=== PATIENT | male | born 1950 | race American Indian/Alaskan Native ===

== ENCOUNTER 2017-03-07 20:37 | Inpatient (IN) | payer MEDICARE ==
[2017-03-07 21:12] LABS: Basophils % (Auto) 1.2 % (0.0-1.8); Eosinophils % (Auto) 4.9 % (0.0-4.3); Hematocrit 36.2 % (35.5-45.6); Hemoglobin 12.3 gm/dl (11.8-15.2); Mean Corpuscular HGB Conc 34 % (32-34); Mean Corpuscular Hemoglobin 32 pg (28-32); Mean Corpuscular Volume 94 fl (84-94); Platelet Count 158 K/mm3 (140-440); Red Blood Count 3.86 M/mm3 (3.65-5.03); Red Cell Distribution Width 13.6 % (13.2-15.2)
[2017-03-07 21:25] LABS: INR 1.03 (0.87-1.13); Partial Thromboplastin Time 28.1 Sec. (24.2-36.6)
[2017-03-07 21:32] LABS: Anion Gap 20 mmol/L; BUN/Creatinine Ratio 16; Blood Urea Nitrogen 13 mg/dL (9-20); Calcium 9.3 mg/dL (8.4-10.2); Carbon Dioxide 26 mmol/L (22-30); Chloride 99.3 mmol/L (98-107); Glucose 98 mg/dL (75-100); Potassium 4.2 mmol/L (3.6-5.0); Sodium 141 mmol/L (137-145)
--- NOTE | 2017-03-08 02:38 | Emergency Department Report ---
HPI - General Chief Complaint: Chest Pain Time Seen by Provider: 03/08/17 01:51 - HPI HPI: This is a 66 year-old male presents to the emergency department with complaint of some intermittent left-sided chest pain that started this evening. It is also associated with some shortness of breath and dizziness. He denies any nausea, vomiting or diaphoresis. The patient complains of some acute on chronic abdominal cramping and/or discomfort. He has not taken anything for her symptoms prior to presentation. He is a former smoker and denies any illicit drug use. He has a history of prostate cancer that was recently diagnosed and he is on chemotherapeutic medications. He has a history of 2 previous strokes with some left lower extremity residual weakness , hypertension, hyperlipidemia. No recent travel or sick contacts at home. His primary care physician is a Dr. Thompson. He has an oncologist, but no gypsum calciner. He is unsure if he has ever had a stress test previously. ED Past Medical Hx - Past Medical History Hx Hypertension: Yes Hx CVA: Yes (2 strokes, 1 TIA) Hx of Cancer: Yes (prostate cancer) Additional medical history: high cholesterol - Surgical History Past Surgical History?: No - Social History Smoking Status: Never Smoker Substance Use Type: None - Medications Home Medications: Home Medications Medication Instructions Recorded Confirmed Last Taken Type AtorvaSTATin [Lipitor] 10 mg PO QHS 03/08/17 03/08/17 Unknown History Bicalutamide [Casodex] 50 mg PO DAILY 03/08/17 03/08/17 Unknown History Clopidogrel Bisulfate [Plavix] 75 mg PO DAILY 03/08/17 03/08/17 Unknown History Pantoprazole [Protonix TAB] 40 mg PO BID #30 tablet 03/08/17 Unknown Rx Tamsulosin [Flomax] 0.4 mg PO QDAY 03/08/17 03/08/17 Unknown History amLODIPine [Norvasc] 10 mg PO DAILY 03/08/17 03/08/17 Unknown History ED Review of Systems ROS: Stated complaint: CHEST PAIN AND DIZZINESS Other details as noted in HPI Comment: All other systems reviewed and negative Constitutional: denies: chills, fever Eyes: denies: eye pain, eye discharge, vision change ENT: denies: ear pain, throat pain Respiratory: shortness of breath. denies: cough Cardiovascular: chest pain. denies: palpitations Gastrointestinal: abdominal pain. denies: vomiting Genitourinary: denies: urgency, dysuria Musculoskeletal: denies: back pain, joint swelling, arthralgia Skin: denies: rash, lesions Neurological: other (dizzy). denies: headache Physical Exam - Physical Exam Vital Signs: Vital Signs 03/07/17 03/08/17 03/08/17 20:53 01:20 02:15 Temperature 98.2 F 98.1 F Pulse Rate 58 L 57 L 53 L Respiratory 18 18 11 L Rate Blood Pressure 161/88 151/85 179/79 O2 Sat by Pulse 98 99 100 Oximetry 03/08/17 02:21 Temperature Pulse Rate Respiratory 14 Rate Blood Pressure O2 Sat by Pulse 98 Oximetry Physical Exam: GENERAL: The patient is well-developed well-nourished. HENT: Normocephalic. Atraumatic. Patient has moist mucous membranes. EYES: Extraocular motions are intact. Pupils equal reactive to light bilaterally. NECK: Supple. Trachea is midline. CHEST/LUNGS: Clear to auscultation. There is no respiratory distress noted. HEART/CARDIOVASCULAR: Regular. There is no tachycardia. There is no gallop rub or murmur. ABDOMEN: Abdomen is soft. Mild generalized tenderness to palpation of the abdomen. Patient has normal bowel sounds. There is no abdominal distention. SKIN: There is no rash. There is no edema. There is no diaphoresis. NEURO: The patient is awake, alert, and oriented. The patient is cooperative. The patient has no focal neurologic deficits. The patient has normal speech. MUSCULOSKELETAL: There is no tenderness or deformity. There is no limitation range of motion. There is no evidence of acute injury. ED Course Vital Signs 03/07/17 03/08/17 03/08/17 20:53 01:20 02:15 Temperature 98.2 F 98.1 F Pulse Rate 58 L 57 L 53 L Respiratory 18 18 11 L Rate Blood Pressure 161/88 151/85 179/79 O2 Sat by Pulse 98 99 100 Oximetry 03/08/17 02:21 Temperature Pulse Rate Respiratory 14 Rate Blood Pressure O2 Sat by Pulse 98 Oximetry ED Medical Decision Making - Lab Data Result diagrams: 03/07/17 21:00 03/07/17 21:00 - EKG Data -: EKG Interpreted by Me EKG shows normal: sinus rhythm, axis (borderline LAD), intervals, QRS complexes , ST-T waves Rate: normal - EKG Data When compared to previous EKG there are: previous EKG unavailable Interpretation: other (Sinus, LAD, No STEMI) - Radiology Data Radiology results: report reviewed, image reviewed interpreted by me: Chest x-ray does not show any acute process. There are no pleural effusions, obvious pneumonia and there is no pneumothorax. Abdominal x-ray shows a large amount of bowel gas but no obvious signs of obstruction. EXAM: CT ABDOMEN PELVIS W CON HISTORY: Abd pain TECHNIQUE: CT images are acquired through the Abdomen and Pelvis arterial and delayed phases following intravenous administration of contrast. Transaxial, coronal and sagittal for reformations are provided. PRIORS: None FINDINGS: Please see CT chest of the same date. The liver, gallbladder, pancreas, spleen, and adrenal glands are unremarkable. Kidneys show no worrisome lesions, hydronephrosis, or calculi. Urinary bladder is unremarkable. Small and large bowel are normal in caliber. Normal caliber and partially air-filled appendix without focal periappendiceal inflammatory findings.. No free air, free fluid, or lymphadenopathy identified. Aorta is normal in course and caliber with densely scattered atherosclerosis. Superficial soft tissues are unremarkable. No acute or aggressive appearing skeletal findings. IMPRESSION: No acute findings in the abdomen or pelvis. EXAM: CT ANGIO CHEST HISTORY: CP, elevated dimer TECHNIQUE: CT imaging obtained through the chest in pulmonary angiographic phase following intravenous administration of contrast. Transaxial, Coronal and sagittal reformats with maximal intensity projections are provided. PRIORS: None. FINDINGS: Normal caliber main pulmonary artery. Well opacified pulmonary arterial tree. No pulmonary embolism. No pericardial effusion. Heart size is within normal limits. Coronary artery disease is present. There is mild focal prominence of the post isthmic aortic arch seen on sagittal image 67 and coronal image 67 measuring up to 3.8 cm. Thoracic aorta is otherwise normal in course and caliber and demonstrates scattered atherosclerotic calcification. No periaortic fluid or stranding. No pneumothorax, effusion or focal airspace disease. There is a 4 millimeter solid-appearing almost certainly benign left lower lung nodule on axial series 3, image 77. The central airways are patent. No bronchiectasis. Please see CT abdomen and pelvis of the same date. The superficial soft tissues are unremarkable. No acute bony abnormality or worrisome osseous lesions identified. IMPRESSION: No pulmonary embolism or other acute finding. Coronary artery disease. 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 Correlation with any prior examinations is requested. Consider routine follow-up with thoracic surgery and correlation with body surface area normalization values. Please see CT abdomen and pelvis of the same date Transcribed By: SRI Dictated By: NOEMY CONTE MD Electronically Authenticated By: NOEMY CONTE MD Signed Date/Time: 03/08/17 0142 - Medical Decision Making Patient presents with a minimal left-sided chest pains and more acute on chronic generalized abdominal pain. Labs are mostly unremarkable except for slightly elevated and equivocal d-dimer. CT angiography does not show pulmonary embolism or dissection or any other acute process. CT of the abdomen and pelvis does not show any acute process patient was admitted to the hospital as a chest pain rule out and accepted for admission by the hospitalist. - Differential Diagnosis CO, PE, bowel obstruction, pneumonia Critical Care Time: No Critical care attestation.: If time is entered above; I have spent that time in minutes in the direct care of this critically ill patient, excluding procedure time. ED Disposition Clinical Impression: Chest pain Qualifiers: Chest pain type: unspecified Qualified Code(s): R07.9 - Chest pain, unspecified Abdominal pain Qualifiers: Abdominal location: generalized Qualified Code(s): R10.84 - Generalized abdominal pain Hypertension Qualifiers: Hypertension type: essential hypertension Qualified Code(s): I10 - Essential ( primary) hypertension Disposition: OP ADMIT IP TO THIS HOSP Is pt being admited?: Yes Does the pt Need Aspirin: Yes Condition: Good Time of Disposition: 06:05
[2017-03-08 03:10] LABS: Alanine Aminotransferase 9 units/L (7-56); Albumin 4.2 g/dL (3.9-5); Albumin/Globulin Ratio 1.2 %; Alkaline Phosphatase 52 units/L (35-129); Lipase 57 units/L (13-60); Total Protein 7.7 g/dL (6.3-8.2)
[2017-03-08 03:11] LABS: Bilirubin,Direct < 0.2 mg/dL (0-0.2); Bilirubin,Indirect 0.3 mg/dL
[2017-03-08] MEDS ORDERED: NACL ONE (03:41)
--- NOTE | 2017-03-08 05:45 | Cat Scan Report ---
FINAL REPORT EXAM: CT ANGIO CHEST HISTORY: CP, elevated dimer TECHNIQUE: CT imaging obtained through the chest in pulmonary angiographic phase following intravenous administration of contrast. Transaxial, Coronal and sagittal reformats with maximal intensity projections are provided. PRIORS: None. FINDINGS: Normal caliber main pulmonary artery. Well opacified pulmonary arterial tree. No pulmonary embolism. No pericardial effusion. Heart size is within normal limits. Coronary artery disease is present. There is mild focal prominence of the post isthmic aortic arch seen on sagittal image 67 and coronal image 67 measuring up to 3.8 cm. Thoracic aorta is otherwise normal in course and caliber and demonstrates scattered atherosclerotic calcification. No periaortic fluid or stranding. No pneumothorax, effusion or focal airspace disease. There is a 4 millimeter solid-appearing almost certainly benign left lower lung nodule on axial series 3, image 77. The central airways are patent. No bronchiectasis. Please see CT abdomen and pelvis of the same date. The superficial soft tissues are unremarkable. No acute bony abnormality or worrisome osseous lesions identified. IMPRESSION: No pulmonary embolism or other acute finding. Coronary artery disease. 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 Correlation with any prior examinations is requested. Consider routine follow-up with thoracic surgery and correlation with body surface area normalization values. Please see CT abdomen and pelvis of the same date
[2017-03-08] MEDS ORDERED: BABY ASPIRIN PO ONE ×2 (06:06→08:54)
--- NOTE | 2017-03-08 06:10 | Cat Scan Report ---
FINAL REPORT EXAM: CT ABDOMEN PELVIS W CON HISTORY: Abd pain TECHNIQUE: CT images are acquired through the Abdomen and Pelvis arterial and delayed phases following intravenous administration of contrast. Transaxial, coronal and sagittal for reformations are provided. PRIORS: None FINDINGS: Please see CT chest of the same date. The liver, gallbladder, pancreas, spleen, and adrenal glands are unremarkable. Kidneys show no worrisome lesions, hydronephrosis, or calculi. Urinary bladder is unremarkable. Small and large bowel are normal in caliber. Normal caliber and partially air-filled appendix without focal periappendiceal inflammatory findings.. No free air, free fluid, or lymphadenopathy identified. Aorta is normal in course and caliber with densely scattered atherosclerosis. Superficial soft tissues are unremarkable. No acute or aggressive appearing skeletal findings. IMPRESSION: No acute findings in the abdomen or pelvis.
--- NOTE | 2017-03-08 07:25 | XRay Report ---
ABDOMINAL SERIES: History: Chest pain, abdominal pain. Erect chest film shows no acute or significant changes involving the heart or lung ash. There is no evidence of free air beneath the diaphragms. The gas pattern within the abdomen is unremarkable. There is no evidence of bowel dilatation, significant air-fluid levels, or masses. Organ shadows are unremarkable. IMPRESSION: Abdominal series within normal limits.
[2017-03-08] MEDS ORDERED: TYLENOL PO PRN (08:47)
--- NOTE | 2017-03-08 08:50 | History and Physical Report ---
<RYAN JOSHI - Last Filed: 03/08/17 14:02> History of Present Illness Date of examination: 03/08/17 Date of admission: 03/08/2017 Chief complaint: Chest pain History of present illness: Patient is a 66 year-old male with past medical history of2 previous strokes with some left lower extremity residual weakness, hypertension , hyperlipidemia, prostate cancer that was recently diagnosed and he is on chemotherapeutic medications who presented to the Emergency Department complaining of intermittent left-sided chest pain. He states that the pain began yesterday around 10:00PM, after eating dinner, intermittent left-sided chest pain. Patient described the pain as, sharp, pressure and squeezing in his chest; that radiates to the left shoulder.The sharp pain lasted around 1 minute. There is no aggravating or reliving factors.The painful episodes did not increase in intensity or severity during this time. Patient denies chest pain at present time. He denies vomiting during these episodes of pain. He experienced shortness of breath, nausea, and diaphoresis during these episodes of pain. He continued to have several episodes of the pain throughout the night yesterday, he decided to come to the emergency department. His primary care physician is a Dr. Thompson. He has an oncologist, but no spool cleaner. Past History Past Medical History: hypertension, hyperlipidemia, stroke (of2 previous strokes with some left lower extremity residual weakness,, hyperlipidemia, prostate cancer that was recently diagnosed and he is on chemotherapeutic medications) Past Surgical History: No surgical history Social history: smoking. denies: alcohol abuse Family history: hypertension Medications and Allergies Allergies Allergy/AdvReac Type Severity Reaction Status Date / Time No Known Allergies Allergy Unverified 03/07/17 20:52 Home Medications Medication Instructions Recorded Confirmed Last Taken Type AtorvaSTATin [Lipitor] 10 mg PO QHS 03/08/17 03/08/17 Unknown History Bicalutamide [Casodex] 50 mg PO DAILY 03/08/17 03/08/17 Unknown History Clopidogrel Bisulfate [Plavix] 75 mg PO DAILY 03/08/17 03/08/17 Unknown History Pantoprazole [Protonix TAB] 40 mg PO BID #30 tablet 03/08/17 Unknown Rx Tamsulosin [Flomax] 0.4 mg PO QDAY 03/08/17 03/08/17 Unknown History amLODIPine [Norvasc] 10 mg PO DAILY 03/08/17 03/08/17 Unknown History Active Meds: Active Medications Acetaminophen (Tylenol) 650 mg PO Q4H PRN PRN Reason: Pain MILD(1-3)/Fever >100.5/GUAN Bisacodyl (Dulcolax) 10 mg FL QDAY PRN PRN Reason: Constipation unrelieved by MOM Enoxaparin Sodium (Lovenox) 40 mg SUB-Q QDAY [facility] Review of Systems Constitutional: no weight gain, no fever Cardiovascular: chest pain, lightheadedness, shortness of breath, dyspnea on exertion, no orthopnea Respiratory: shortness of breath, dyspnea on exertion Gastrointestinal: nausea, no vomiting, no diarrhea Genitourinary Male: no nocturia, no incontinence, no erectile dysfunction Rectal: no incontinence, no bleeding Musculoskeletal: no neck pain, no shooting arm pain, no leg numbness/tingling, no redness of joints Integumentary: no sores, no wounds, no jaundice, no boils Neurological: no numbness, no tingling, no seizures, no syncope Psychiatric: no insomnia, no hypersomnia, no change in appetite Endocrine: no cold intolerance, no heat intolerance, no polyphagia, no excessive thirst Hematologic/Lymphatic: no easy bruising, no easy bleeding Allergic/Immunologic: no urticaria, no allergic rhinitis Exam - Constitutional Vitals: Temp Pulse Resp BP Pulse Ox 98.1 F 50 L 14 147/77 99 03/08/17 01:20 03/08/17 07:00 03/08/17 07:00 03/08/17 07:00 03/08/17 07:00 General appearance: Present: no acute distress - EENT Eyes: Present: PERRL ENT: hearing intact - Neck Neck: Present: supple - Respiratory Respiratory effort: normal Respiratory: bilateral: CTA - Cardiovascular Rhythm: regular Heart Sounds: Present: S1 & S2 - Abdominal General gastrointestinal: Present: soft, non-tender Male genitourinary: Present: deferred - Rectal Rectal Exam: deferred - Integumentary Integumentary: Present: clear, warm, dry - Musculoskeletal Musculoskeletal: strength equal bilaterally - Psychiatric Psychiatric: appropriate mood/affect - Neurologic Neurologic: CNII-XII intact - Allied Health Allied health notes reviewed: nursing Results - Labs CBC & Chem 7: 03/07/17 21:00 03/07/17 21:00 Labs: Laboratory Last Values WBC 7.0 K/mm3 (4.5-11.0) 03/07/17 21:00 RBC 3.86 M/mm3 (3.65-5.03) 03/07/17 21:00 Hgb 12.3 gm/dl (11.8-15.2) 03/07/17 21:00 Hct 36.2 % (35.5-45.6) 03/07/17 21:00 MCV 94 fl (84-94) 03/07/17 21:00 MCH 32 pg (28-32) 03/07/17 21:00 MCHC 34 % (32-34) 03/07/17 21:00 RDW 13.6 % (13.2-15.2) 03/07/17 21:00 Plt Count 158 K/mm3 (140-440) 03/07/17 21:00 Lymph % (Auto) 37.9 % (13.4-35.0) H 03/07/17 21:00 Talbot % (Auto) 10.6 % (0.0-7.3) H 03/07/17 21:00 Eos % (Auto) 4.9 % (0.0-4.3) H 03/07/17 21:00 Baso % (Auto) 1.2 % (0.0-1.8) 03/07/17 21:00 Lymph # 2.7 K/mm3 (1.2-5.4) 03/07/17 21:00 Talbot # 0.7 K/mm3 (0.0-0.8) 03/07/17 21:00 Eos # 0.3 K/mm3 (0.0-0.4) 03/07/17 21:00 Baso # 0.1 K/mm3 (0.0-0.1) 03/07/17 21:00 Seg Neutrophils % 45.4 % (40.0-70.0) 03/07/17 21:00 Seg Neutrophils # 3.2 K/mm3 (1.8-7.7) 03/07/17 21:00 PT 14.0 Sec. (12.2-14.9) 03/07/17 21:00 INR 1.03 (0.87-1.13) 03/07/17 21:00 APTT 28.1 Sec. (24.2-36.6) 03/07/17 21:00 D-Dimer 406.01 ng/mlDDU (0-234) H 03/08/17 02:20 Sodium 141 mmol/L (137-145) 03/07/17 21:00 Potassium 4.2 mmol/L (3.6-5.0) 03/07/17 21:00 Chloride 99.3 mmol/L (98-107) 03/07/17 21:00 Carbon Dioxide 26 mmol/L (22-30) 03/07/17 21:00 Anion Gap 20 mmol/L 03/07/17 21:00 BUN 13 mg/dL (9-20) 03/07/17 21:00 Creatinine 0.8 mg/dL (0.8-1.5) 03/07/17 21:00 Estimated GFR > 60 ml/min 03/07/17 21:00 BUN/Creatinine Ratio 16 % 03/07/17 21:00 Glucose 98 mg/dL (75-100) 03/07/17 21:00 Calcium 9.3 mg/dL (8.4-10.2) 03/07/17 21:00 Total Bilirubin 0.50 mg/dL (0.1-1.2) 03/08/17 02:20 Direct Bilirubin < 0.2 mg/dL (0-0.2) 03/08/17 02:20 Indirect Bilirubin 0.3 mg/dL 03/08/17 02:20 AST 15 units/L (5-40) 03/08/17 02:20 ALT 9 units/L (7-56) 03/08/17 02:20 Alkaline Phosphatase 52 units/L (35-129) 03/08/17 02:20 Troponin T < 0.010 ng/mL (0.00-0.029) 03/08/17 02:20 Total Protein 7.7 g/dL (6.3-8.2) 03/08/17 02:20 Albumin 4.2 g/dL (3.9-5) 03/08/17 02:20 Albumin/Globulin Ratio 1.2 % 03/08/17 02:20 Lipase 57 units/L (13-60) 03/08/17 02:20 - Imaging and Cardiology Chest x-ray: image reviewed (Unremarkable ) Assessment and Plan Assessment and plan: Patient is a 66 year-old male with past medical history of2 previous strokes with some left lower extremity residual weakness, hypertension , hyperlipidemia, prostate cancer that was recently diagnosed and he is on chemotherapeutic medications who presented to the Emergency Department complaining of intermittent left-sided chest pain. Chest Pain We will admit to telemetry floor. EKG normal sinus, no ST elevation or T-wave inversion. Negative cardiac enzyme X3 Start on aspirin Nitroglycerin when necessary Morphine ordered for pain Stress test ordered. Hyperlipidemia Resume antilipd pills Hx of CVA Physical /occupational therapy on board Prostate cancer Patient on chemotherapy medications Continue current therapy Hypertension Resume home antihypertensive medication IV hydralazine for SBP>160 Closely monitor blood pressure DVT prophylaxis Lovenox Advance Directives: Yes VTE prophylaxis?: Chemical Contraindication Mechanical VTE Prophylaxis: Treatment Not Indicated Plan of care discussed with patient/family: Yes <AMELIA MCCULLOUGH R - Last Filed: 03/08/17 15:23> History of Present Illness Date of admission: 03/08/17 08:47 Medications and Allergies Active Meds: Active Medications Acetaminophen (Tylenol) 650 mg PO Q4H PRN PRN Reason: Pain MILD(1-3)/Fever >100.5/GUAN Amlodipine Besylate (Norvasc) 10 mg PO DAILY [facility] Last Admin: 03/08/17 10:36 Dose: 10 mg Atorvastatin Calcium (Lipitor) 10 mg PO QHS [facility] Bicalutamide (Casodex) 50 mg PO DAILY [facility] Last Admin: 03/08/17 10:36 Dose: 50 mg Bisacodyl (Dulcolax) 10 mg FL QDAY PRN PRN Reason: Constipation unrelieved by MOM Clopidogrel Bisulfate (Plavix) 75 mg PO DAILY [facility] Last Admin: 03/08/17 10:37 Dose: 75 mg Enoxaparin Sodium (Lovenox) 40 mg SUB-Q QDAY [facility] Last Admin: 03/08/17 10:37 Dose: Not Given Miscellaneous Medication (Leuprolide Acetate (Nf)) 7.5 mg IM QMONTH [facility] Last Admin: 03/08/17 09:42 Dose: Not Given Tamsulosin HCl (Flomax) 0.4 mg PO QDAY [facility] Last Admin: 03/08/17 10:51 Dose: 0.4 mg Exam - Constitutional Vitals: Temp Pulse Resp BP Pulse Ox 98.1 F 89 18 131/91 100 03/08/17 12:21 03/08/17 15:00 03/08/17 12:21 03/08/17 12:21 03/08/17 12:21 Results - Labs CBC & Chem 7: 03/07/17 21:00 03/07/17 21:00 Labs: Laboratory Last Values WBC 7.0 K/mm3 (4.5-11.0) 03/07/17 21:00 RBC 3.86 M/mm3 (3.65-5.03) 03/07/17 21:00 Hgb 12.3 gm/dl (11.8-15.2) 03/07/17 21:00 Hct 36.2 % (35.5-45.6) 03/07/17 21:00 MCV 94 fl (84-94) 03/07/17 21:00 MCH 32 pg (28-32) 03/07/17 21:00 MCHC 34 % (32-34) 03/07/17 21:00 RDW 13.6 % (13.2-15.2) 03/07/17 21:00 Plt Count 158 K/mm3 (140-440) 03/07/17 21:00 Lymph % (Auto) 37.9 % (13.4-35.0) H 03/07/17 21:00 Talbot % (Auto) 10.6 % (0.0-7.3) H 03/07/17 21:00 Eos % (Auto) 4.9 % (0.0-4.3) H 03/07/17 21:00 Baso % (Auto) 1.2 % (0.0-1.8) 03/07/17 21:00 Lymph # 2.7 K/mm3 (1.2-5.4) 03/07/17 21:00 Talbot # 0.7 K/mm3 (0.0-0.8) 03/07/17 21:00 Eos # 0.3 K/mm3 (0.0-0.4) 03/07/17 21:00 Baso # 0.1 K/mm3 (0.0-0.1) 03/07/17 21:00 Seg Neutrophils % 45.4 % (40.0-70.0) 03/07/17 21:00 Seg Neutrophils # 3.2 K/mm3 (1.8-7.7) 03/07/17 21:00 PT 14.0 Sec. (12.2-14.9) 03/07/17 21:00 INR 1.03 (0.87-1.13) 03/07/17 21:00 APTT 28.1 Sec. (24.2-36.6) 03/07/17 21:00 D-Dimer 406.01 ng/mlDDU (0-234) H 03/08/17 02:20 Sodium 141 mmol/L (137-145) 03/07/17 21:00 Potassium 4.2 mmol/L (3.6-5.0) 03/07/17 21:00 Chloride 99.3 mmol/L (98-107) 03/07/17 21:00 Carbon Dioxide 26 mmol/L (22-30) 03/07/17 21:00 Anion Gap 20 mmol/L 03/07/17 21:00 BUN 13 mg/dL (9-20) 03/07/17 21:00 Creatinine 0.8 mg/dL (0.8-1.5) 03/07/17 21:00 Estimated GFR > 60 ml/min 03/07/17 21:00 BUN/Creatinine Ratio 16 % 03/07/17 21:00 Glucose 98 mg/dL (75-100) 03/07/17 21:00 Calcium 9.3 mg/dL (8.4-10.2) 03/07/17 21:00 Total Bilirubin 0.50 mg/dL (0.1-1.2) 03/08/17 02:20 Direct Bilirubin < 0.2 mg/dL (0-0.2) 03/08/17 02:20 Indirect Bilirubin 0.3 mg/dL 03/08/17 02:20 AST 15 units/L (5-40) 03/08/17 02:20 ALT 9 units/L (7-56) 03/08/17 02:20 Alkaline Phosphatase 52 units/L (35-129) 03/08/17 02:20 Troponin T < 0.010 ng/mL (0.00-0.029) 03/08/17 02:20 Total Protein 7.7 g/dL (6.3-8.2) 03/08/17 02:20 Albumin 4.2 g/dL (3.9-5) 03/08/17 02:20 Albumin/Globulin Ratio 1.2 % 03/08/17 02:20 Lipase 57 units/L (13-60) 03/08/17 02:20 Assessment and Plan Assessment and plan: I saw and evaluated the patient. I agree with the findings and the plan of care as documented in the Nurse Practitioner's~note.
[2017-03-08] MEDS ORDERED: LEUPROLIDE ACETATE 7.5 MG IM SCH (09:00)
[2017-03-08] MEDS ORDERED: CASODEX PO SCH (10:00)
[2017-03-08] MEDS ORDERED: DULCOLAX PR PRN (10:00)
[2017-03-08] MEDS ORDERED: NORVASC PO SCH (10:00)
[2017-03-08] MEDS ORDERED: FLOMAX PO SCH (10:00)
[2017-03-08] MEDS ORDERED: PLAVIX PO SCH (10:00)
[2017-03-08] MEDS ORDERED: LOVENOX SUB-Q SCH (11:00)
[2017-03-08] MEDS ORDERED: LEXISCAN IV ONE (11:22)
--- NOTE | 2017-03-08 14:27 | Discharge Summary ---
<CLAUDIARYAN SPAIN - Last Filed: 03/08/17 14:30> Providers - Providers Date of Admission: 03/08/17 08:47 Date of discharge: 03/08/17 Attending physician: AMELIA MCCULLOUGH 03/08/17 14:00 Occupational Therapy Evaluate and Treat [CONS] Routine Comment: Reason For Exam: Hx CVA Physical Therapy Evaluation and Treat [CONS] Routine Comment: Reason For Exam: Hx CVA Primary care physician: VIELKA HARDY Hospitalization Reason for admission: Chest pain Condition: Good Hospital course: Patient is a 66 year-old male with past medical history of2 previous strokes with some left lower extremity residual weakness, hypertension , hyperlipidemia, prostate cancer that was recently diagnosed and he is on chemotherapeutic medications who presented to the Emergency Department complaining of intermittent left-sided chest pain.Patient presented with atypical chest pain, ACS was ruled out, stress test normal MPI, negative cardiac enzymes, ECGs shows normal sinus rythm, CXR WNL. CTA no evidence of pulmonary embolism. Patient chest pain due to GERD. He was treated with IV fluid hydration and antihypertensive medications. Patient is clinically improved and stable for discharge. Patient advised to follow-up with her primary care provider. Discharge Diagnosed Chest Pain due to GERD Hyperlipidemia Hypertension Hx of CVA Prostate cancer Disposition: DC- TO HOME OR SELFCARE Core Measure Documentation - Palliative Care Palliative Care/ Comfort Measures: Not Applicable - Core Measures Any of the following diagnoses?: none Exam - Constitutional Vitals: Temp Pulse Resp BP Pulse Ox 98.1 F 89 18 131/91 100 03/08/17 12:21 03/08/17 12:21 03/08/17 12:21 03/08/17 12:21 03/08/17 12:21 General appearance: Present: no acute distress - EENT Eyes: Present: PERRL ENT: hearing intact - Neck Neck: Present: supple - Respiratory Respiratory effort: normal Respiratory: bilateral: CTA - Cardiovascular Rhythm: regular Heart Sounds: Present: S1 & S2 - Abdominal General gastrointestinal: Present: soft, non-tender Male genitourinary: Present: deferred - Rectal Rectal Exam: deferred - Integumentary Integumentary: Present: clear, warm, dry - Musculoskeletal Musculoskeletal: strength equal bilaterally - Psychiatric Psychiatric: appropriate mood/affect - Neurologic Neurologic: CNII-XII intact - Allied Health Allied health notes reviewed: nursing Plan Diet: low fat, low cholesterol, low salt Follow up with: VIELKA HARDY MD [Primary Care Provider] - 3-5 Days Prescriptions: Pantoprazole [Protonix TAB] 40 mg PO BID #30 tablet <ALLISON MCCULLOUGHJOVON Harry - Last Filed: 03/09/17 09:52> Providers - Providers Date of Admission: 03/08/17 08:47 Attending physician: AMELIA MCCULLOUGH 03/08/17 14:00 Occupational Therapy Evaluate and Treat [CONS] Routine Comment: Reason For Exam: Hx CVA Physical Therapy Evaluation and Treat [CONS] Routine Comment: Reason For Exam: Hx CVA Primary care physician: VIELKA HARDY Hospitalization Hospital course: I saw and evaluated the patient. I agree with the findings and the plan of care as documented in the Nurse Practitioner's~note. Exam - Constitutional Vitals: Temp Pulse Resp BP Pulse Ox 98.1 F 89 18 131/91 100 03/08/17 12:21 03/08/17 15:00 03/08/17 12:21 03/08/17 12:21 03/08/17 12:21
--- NOTE | 2017-03-08 23:21 | Treadmill Report ---
NUCLEAR CARDIAC IMAGING INDICATION FOR PROCEDURE: Chest pain. Informed consent was obtained. DESCRIPTION OF PROCEDURE: Resting nuclear cardiac imaging was performed 45-60 minutes following the intravenous administration of 10 mCi of technetium 99m technetium-99m Myoview. Vasodilator stress was achieved with 0.4 mg of intravenous Lexiscan per protocol. Subsequently, stress myocardial perfusion imaging was performed 30-45 minutes following the intravenous administration of technetium of 28 mCi of technetium-99m Myoview. Images were acquired in a 180-degree arc from 45 degrees DE LEON to 45 degrees LPO. After data acquisition and reconstruction, the images were processed and reoriented into the vertical long, horizontal long, and horizontal short axis slices. A polar color map of the horizontal short axis slices was generated and reviewed. The rotating planar images reviewed in cinematic format on the computer console. Gated SPECT imaging demonstrates a post-stress left ventricular ejection fraction of 70%. The left ventricular segmental wall motion appears normal. Myocardial perfusion imaging demonstrates no significant cavity change between stress and rest. There is a small mild partially reversible inferoapical perfusion abnormality. This defect is of questionable significance. On quantitative assessment, no significant ischemia is identified. Nuclear cardiac imaging demonstrates grossly normal post-stress left ventricular systolic function. There is no evidence for prior myocardial necrosis. Although a small area of inferoapical ischemia cannot be definitely excluded, the imaging characteristics of this perfusion abnormalities suggest that it may be artifactual in origin. A significant degree of ischemia is not seen. JOB# [id number] JUAN PABLO/CYN
[2017-03-10 09:24] VITALS: BP 143/70
== END 2017-03-08 16:27 | disposition home or self-care (01) | DRG 392 ==
LOC: ED 20:37 → 4A 03-08 08:47
PROVIDERS: ADMIT Internal Medicine; ATTEND Internal Medicine
DX: K21.9 Gastro-esophageal reflux disease without esophagitis (principal); I10 Essential (primary) hypertension; E78.5 Hyperlipidemia, unspecified; R10.9 Unspecified abdominal pain; C61 Malignant neoplasm of prostate; Z86.73 Personal history of transient ischemic attack (TIA), and cerebral infarction without residual deficits; Z79.899 Other long term (current) drug therapy; Z82.49 Family history of ischemic heart disease and other diseases of the circulatory system
CPT/HCPCS: 36415; 71275; 74022; 74177; 78452; 80048; 80074; 83690; 84484; 85025; 85379; 85610; 85730; 93005; 93010; 93017; A9502; J1650; J2785; J9999; Q9967